=== PATIENT | female | born 2000 | race Caucasian/White ===

== ENCOUNTER → 2020-05-29 | Outpatient (CLI) | payer SELFPAY | LOC: M LABCAHC 09:40 | PROVIDERS: ATTEND Pediatrics | DX: Z11.59 Encounter for screening for other viral diseases (principal) ==

== ENCOUNTER → 2022-01-08 | Outpatient (REF) | payer BC, MEDICAID | LOC: M LAB REF 16:50 | PROVIDERS: ATTEND Internal Medicine Endocrinology, Diabetes & Metabolism | DX: E04.1 Nontoxic single thyroid nodule (principal) ==

== ENCOUNTER 2024-04-22 14:31 | Emergency (ER) | payer OTHER, BC ==
[~2024-04-22] VITALS: Ht 157.5 cm; Wt 79.3 kg
[2024-04-22] MEDS: ACETAMINOPHEN 500 MG TAB PO ONE (17:59)
[2024-04-22] MEDS: LIDOCAINE 5% (LIDODERM) PATCH TD ONE (17:59)
[2024-04-22] MEDS: KETOROLAC 30 MG/ML 1ML VIAL IM ONE (18:00)
[2024-04-22] MEDS ORDERED: CYCL-707 PO (18:49)
[2024-04-22 18:59] VITALS: BP 132/69; TEMP 97.9; O2SAT 100
== END 2024-04-22 19:00 | disposition home or self-care (01) ==
LOC: M ED 14:31
DX: M54.41 Lumbago with sciatica, right side (principal); M54.42 Lumbago with sciatica, left side; Z79.899 Other long term (current) drug therapy
CPT/HCPCS: 96372; 99283; J1885